=== PATIENT | male | born 1980 | race Caucasian/White ===

== ENCOUNTER 2020-04-20 09:42 | Emergency (ER) | payer MEDICAID ==
[~2020-04-20] VITALS: Ht 190.5 cm; Wt 74.0 kg
[2020-04-20 12:07] VITALS: BP 105/70
--- NOTE | 2020-04-20 12:10 | NUR ---
Pt ate sandwich and juice, now is resting comfortably in bed, no distress, eyes closed, RR even and unlabored
[2020-04-20] MEDS ORDERED: predniSONE 20 mg tablet PO ONE (12:45)
[2020-04-20] MEDS ORDERED: DIPH25TA62 PO (12:48)
[2020-04-20] MEDS ORDERED: PRED20TA PO (12:48)
== END 2020-04-20 12:58 | disposition home or self-care (01) ==
LOC: ER 09:43
DX: T78.40XA Allergy, unspecified, initial encounter (principal); M25.562 Pain in left knee; R22.31 Localized swelling, mass and lump, right upper limb; H57.89 Other specified disorders of eye and adnexa; Z79.899 Other long term (current) drug therapy; X58.XXXA Exposure to other specified factors, initial encounter
CPT/HCPCS: 99283; J7512